=== PATIENT | male | born 1940 | race Caucasian/White ===

== ENCOUNTER 2018-06-19 13:08 | Observation (INO) ==
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
[2018-06-19] MEDS ORDERED: CeFAZolin Syr 2,000MG/20 ML 2,000 MG/20 ML SYRINGE IVPB ONE (13:20)
[2018-06-19] MEDS ORDERED: Ringers Solution, Lactated 1,000 ML IVC SCH ×2 (13:30→17:58)
--- NOTE | 2018-06-19 13:33 | History & Physical Report ---
Date of Encounter: 06/19/18 Time of Encounter: 13:32 24 Hour HP Update - Instructions Instructions: If the History and Physical is less than 30 days old and was completed prior to A.M. admission and or procedure and has NOT been updated on calendar day of procedure please complete this update prior to performing procedure. - Update Patient reports changes in Medical Condition: No Changes in examination, assessment, or condition: No Changes in Medication: No Preop tests/diagnostics Reviewed: Yes Surgery Remains Indicated: Yes Consent for Planned Operative Procedure(s) Verified: Yes - Pre-Operative Checklist Preoperative Checklist Indicated: No Prophylactic Antibiotic Ordered: Yes Is VTE Prophylaxis Indicated?: Yes
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
[2018-06-19] MEDS ORDERED: Lidocaine -MPF 2% 2 ML VIAL ONE ×2 (13:51→14:54)
[2018-06-19] MEDS ORDERED: *HR* Succinylcholine 200 MG/10 ML VIAL IVP ONE (13:51)
[2018-06-19] MEDS ORDERED: *HR* Propofol 200 MG/20 ML VIAL IVP ONE (13:51)
[2018-06-19] MEDS ORDERED: Ondansetron 4 MG/2 ML VIAL ONE (13:51)
[2018-06-19] MEDS ORDERED: *HR* FentaNYL (PF) 100 MCG/2 ML VIAL ONE ×2 (13:51→14:54)
[2018-06-19] MEDS ORDERED: *HR* Midazolam HCl 2 MG/2 ML VIAL ONE ×2 (13:51→14:54)
[2018-06-19] MEDS ORDERED: Dexamethasone 4 MG/ML VIAL ONE (13:51)
[2018-06-19] MEDS ORDERED: *HR* Rocuronium Bromide 50 MG/5 ML VIAL ONE (14:30)
[2018-06-19] MEDS ORDERED: Lidocaine -MPF 4% 5 ML AMPUL ONE (14:31)
[2018-06-19] MEDS ORDERED: *HR* HYDROmorphone (PF) 1 MG/ML SYRINGE IVP PRN ×2 (14:41→15:43)
[2018-06-19] MEDS ORDERED: *HR* OxyCODONE Immed Rel 5 MG TABLET PO PRN ×2 (14:41→17:58)
[2018-06-19] MEDS ORDERED: *HR* Promethazine 25 MG/ML VIAL IVP PRN (14:41)
[2018-06-19] MEDS ORDERED: ROPIVACAINE HCL/PF 0.5% 30 ML VIAL ONE (15:01)
[2018-06-19] MEDS ORDERED: Bupivacaine/Clonidine Syringe 1 EACH SYRINGE ONE (15:01)
[2018-06-19] MEDS ORDERED: Lidocaine -MPF 1% 5 ML AMPUL ONE (15:02)
--- NOTE | 2018-06-19 15:42 | Anesthesia Procedures ---
Date of Encounter: 06/19/18 Time of Encounter: 15:15 Procedures: Anesthesia - Nerve Block Procedure Date: 06/19/18 Time: 15:15 Checklist: Correct Patient Identifier, Correct procedure, History checked Correct side: Right Blood Thinner: No Monitor Applied: EKG, BP, Pulse Oximetry Supplemental Oxygen via Nasal Cannula (L/min): 2 Sedation: Versed (mg): 2 Sedation: Fentanyl (mcg): 50 Indication: Post Op Analgesia Pre-op Neuro Deficits: No Block Type: Supraclavicular Catheter placed: No Sterile Technique: Yes Ultrasound used: Yes Anatomy identified: Yes Visual spread of Local: Yes Neuro Stimulation: Yes Nerve Stimulator Range: >0.4 - 0.6 mA Blood on Needle Aspiration: No Smooth Injection of Local: Yes Pain with Injection of Local: No Prep: Chlorhexadine Needle: 22 x 50 mm Stimuplex Local: Ropivacaine, Other (decadron 8mg) Volume (cc): 30 Number of Attempts: 1 Complications: None/effective block Vitals: stable Anes Supervising Prov Stmt: Dr Badillo
[2018-06-19] MEDS ORDERED: Ondansetron 4 MG/2 ML VIAL IVP ONE (15:43)
[2018-06-19] MEDS ORDERED: *HR* Meperidine 25 MG/ML SYRINGE IVP PRN (15:43)
[2018-06-19] MEDS ORDERED: *HR* PHENYLEPHRINE 1,000 MCG/10 ML SYRINGE IVP ONE ×2 (16:05→16:29)
[2018-06-19] MEDS ORDERED: EPHEDrine 50 MG/ML VIAL ONE (16:10)
[2018-06-19] MEDS ORDERED: Neostigmine Methylsulfate 3 MG/3 ML SYRINGE ONE (16:17)
--- NOTE | 2018-06-19 16:58 | Orthopedic Operative Note ---
Date of procedure: 06/19/18 Pre-op diagnosis: Right shoulder cuff tear arthropathy Post-op diagnosis: same Procedure: Procedure: Total Shoulder Replacment Reverse, right Estimated blood loss: 100 cc Hardware: Metal and polyethylene replacement: Arthrex 28, +4 , 30 mm post glenoid baseplate, 2 4.5 screws. 2 5.5 screw, 42+4 glenosphere, 13 apex humeral stem, poly insert 3 Exam Under anesthesia: Restricted motion Procedural Notes: Severe glenohumeral arthritis with very repairable tear rotator cuff. Operative procedure: The patient was brought to the operating room and placed on the operating room table. After general anesthesia was administered the operative shoulder was examined. Findings were noted. The patient was placed in the modified beachchair position. All pressure points were padded appropriately. And the head was stabilized in the neutral position. The operative extremity was prepped and draped in the sterile surgical fashion. The patient received IV antibiotics prior to skin incision. A standard deltopectoral approach was made to the operative shoulder. Incision was made to the skin and subcutaneous tissue,hemo stasis was obtained with Bovie cautery. Using careful blunt dissection the cephalic vein was identified and mobilized medially. The deltopectoral interval was developed and the clavipectoral fascia was incised. The subscap was released off the lesser tuberosity and tagged with #2 FiberWire suture subscap irreparable. The humerus was dislocated patient noted to have irreparable tear supraspinatus tendon, and the humeral cut was made along the anatomic neck. The patient noted to have grade 4 arthritic changes humeral head Anterior and posterior Bankart retractors were placed to expose the glenoid. Patient noted to have grade 4 arthritic changes glenoid socket. The glenoid guide was seated and the centering hole was made. It was reamed with the appropriate reamer. The 28, +4, 30 mm post was seated and secured with (2) 4.5 screws and 2 5.5 screw. The baseplate was irrigated and dried and the 42+4 Glenosphere was seated and secured with the Guerra taper. The Guerra taper was tested and found to be secure the humerus was redislocated and prepared with the diaphyseal reamers, followed by a broaching process up to the appropriate size 13 apex in the patient's anatomic version. The metaphyseal reamer was then utilized. Trial reduction found the shoulder to be relocatable. Trial components were removed and 13 apex stem was impacted in place in the patient's anatomic version. Trial reduction found the shoulder to be relocatable and stable with the appropriate 3 Trial component was removed and the real implant was seated and secured the shoulder was reduced. The shoulder had excellent motion and excellent stability and no evidence of dislocation. The deep tissue was irrigated with pulse irrigation. The deltopectoral interval was closed with a running #1 PDS suture, subcutaneous tissue was irrigated and closed with 0 PDS suture, the skin was closed with Dermabond. The patient was placed in a sterile dressing, abduction brace and extubated. The patient was then transferred to the recovery room in stable condition. Anesthesia: GETA Surgeon: Epi Patel Was there an commercial lending assistant present: No Estimated blood loss (cc): 100 Condition: stable Disposition: PACU
--- NOTE | 2018-06-19 17:36 | Anesthesia Evaluation Post Op ---
Date of Encounter: 06/19/18 Time of Encounter: 17:36 - Vital Signs Vital Signs: Vital Signs/O2 Sat, Most Current Temp Pulse Resp BP Pulse Ox 97.4 F L 75 14 114/68 98 06/19/18 17:27 06/19/18 17:27 06/19/18 17:27 06/19/18 17:27 06/19/18 17:27 - Lungs Lungs: Clear Ascult./Percussion - Airway Airway: Non-obstructed - Cardiovascular Regular Rate - Mental Status Mental Status: Alert & Oriented, Answers Appropriately - Pain Pain Scale: 0 Pain Scale used: Numeric (1 - 10) - Nausea Vomiting Nausea Vomiting: Not Present - Hydration Hydration: NPO, Has not voided - Discharge PostOp Status: Transfer Patient to floor
[2018-06-19] MEDS ORDERED: Naloxone 0.4 MG/ML INJ IVP PRN (17:58)
[2018-06-19] MEDS ORDERED: *HR* OxyCODONE/APAP 5/325 TABLET PO PRN (17:58)
[2018-06-19] MEDS ORDERED: MOM Conc 10 ML UD.LIQ PO PRN (17:58)
[2018-06-19] MEDS ORDERED: Sennosides 8.6 MG TABLET PO PRN (17:58)
[2018-06-19] MEDS ORDERED: Sennosides/Docusate Sodium TABLET PO PRN (17:58)
[2018-06-19] MEDS ORDERED: Temazepam 15 MG CAPSULE PO PRN (17:58)
[2018-06-19] MEDS ORDERED: Ondansetron 4 MG/2 ML VIAL IVP PRN (17:58)
[2018-06-19] MEDS ORDERED: traMADol 50 MG TABLET PO PRN (17:58)
[2018-06-19] MEDS ORDERED: *HR* Enoxaparin 30 MG/0.3 ML SYRINGE SQ SCH (18:00)
[2018-06-19 18:05] LABS: Hematocrit 41.8 % (37.5-50.1); Hemoglobin 12.9 g/dL (12.9-16.9)
[2018-06-19] MEDS: *HR* Enoxaparin 30 MG/0.3 ML SYRINGE SQ SCH (19:01)
[2018-06-20 01:05] LABS: Hematocrit 40.3 % (37.5-50.1); Hemoglobin 12.7 g/dL (12.9-16.9)
[2018-06-20] MEDS: *HR* Enoxaparin 30 MG/0.3 ML SYRINGE SQ SCH (05:02)
[2018-06-20] MEDS ORDERED: Levothyroxine 25 MCG TABLET PO SCH (06:30)
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
[2018-06-20] MEDS ORDERED: [UNRECOGNIZED DRUG - OTHER] PO SCH (09:00)
[2018-06-20] MEDS ORDERED: Multivit/Ca/Min/Fe/FA 1 TAB TABLET PO SCH (09:00)
[2018-06-20] MEDS ORDERED: ASCORBIC ACID PO SCH (09:00)
[2018-06-20] MEDS ORDERED: IRON CARBONYL PO SCH (09:00)
[2018-06-20] MEDS ORDERED: Zinc Sulfate 220 MG CAPSULE PO SCH (09:00)
[2018-06-20] MEDS ORDERED: Ascorbic Acid 500 MG TABLET PO SCH (09:00)
[2018-06-20] MEDS ORDERED: Cholecalciferol (D-3) 1,000 UNIT TABLET PO SCH (09:00)
[2018-06-20 11:42] VITALS: BP 141/73
--- NOTE | 2018-06-20 16:45 | Event Note ---
Date of Encounter: 06/20/18 Time of Encounter: 12:30 PCR - POD#1 Total Shoulder Replacment Reverse, right 06/19/18 Patient seen at bedside, without complaints. A&O x 3 Afebrile, vital signs stable. Per nursing the dressings were saturated this morning and changed roughly 4-5 hrs ago. very minimal bleeding on dressings on exam. No active bleeding, no francois necessary. Reapply new opsite visible dressing before discharge. Labs reviewed. H/H 12.7/40.3- stable, asymptomatic Pain control: adequate Participating in PT. Recommendation for hemiwalker. Therapy to give additional education/training on use of this before discharge. All questions and concerns addressed. Educated on use of incentive spirometer. Encouraged ambulation and proper hydration. Patient educated on post-operative restrictions and post-operative care. Assessment and plan: Continue with postoperative care Discharge plan: Home, outpatient therapy. discharge today.
== END 2018-06-20 15:52 | disposition home or self-care (01) | DRG 483 ==
LOC: SAMDAY 13:08 → INTOOBSV 17:59 → 3NENU 17:59
PROVIDERS: ADMIT Orthopaedic Surgery; ATTEND Orthopaedic Surgery